=== PATIENT | female | born 1995 | race Caucasian/White ===

== ENCOUNTER 2024-08-23 18:18 | Inpatient (IN) | payer MEDICAID, SELFPAY ==
[2024-08-23 19:10] VITALS: BP 138/83; PULSE 84; RESP 14; TEMP 36.8; O2SAT 97
[2024-08-23 19:12] VITALS: BMI 37.9
--- NOTE | 2024-08-23 19:32 | PC.NURSE ---
Patient arrived on the unit at 1854 on a CV from [facility]. Patient's meter changes records clerk was completed with two nurses (skin WDI) along with vitals and height and weight (pt was also oriented to the unit). Denies SI/HI and requested to lay down after the skin check was completed.
--- NOTE | 2024-08-24 01:28 | PM.EVENT ---
Event Note Date of Service: 08/24/24 Event Note: Patient is a 29-year-old female admitted to adult psych, hospitalist consultation placed for medical clearance. The patient was sleeping and it was requested by nursing staff that we do not with the patient for nonurgent consultation. Upon review of the patient's chart she does not have any significant medical history. She did not have any medical concerns when seen by nursing staff upon arrival. Time Spent With Patient Time: Total time managing care of this patient today ____ minutes.
[2024-08-24] MEDS: Acetaminophen 325 MG TABLET 650 MG PO (03:09)
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
[2024-08-24 08:00] VITALS: BP 142/82; PULSE 82; RESP 16; TEMP 36.6; O2SAT 99
--- NOTE | 2024-08-24 08:20 | P.CONHOSP_ITS ---
History of Present Illness Data of Consult Service Date: 08/24/24 Primary Care Provider: Unknown Physician HPI Reason for consult: Admission H&P Pt is a 29-year-old female without known significant PMH who is admitted to M3 psychiatry unit for bizarre behaviors. Pt initially called the police department looking for an officer that she had been communicating with telepathically. Reported that she would often speak directly to God and was told in a dream by angellily to call the police today to find out who she had been communicating with. Medical consult for admission H&P. Pt reports had previously had constipation for a few days but then talked to God about it who then resolved the issue. Pt states that she is able to speak directly to God and often talks to him about medical issues which he is able to treat. Currently pt denies any acute medical complaints. No fever, chills, nausea, vomiting, abdominal pain. Denies chest pain/pressure, palpitations. No SOB or difficulty breathing. No headache or acute vision changes Denies changes to bowel or bladder habits. Vitals reviewed, stable and WNL. Labs and [facility] reviewed, grossly unremarkable. Review of Systems Review of Systems: Pt has no acute medical complaints at this time. [facility] Social History Household Members: Other Household Members Other:: Mom Housing: Other Housing Other:: [facility] Do you presently have visiting nurse or other home services: No Patient Tobacco Use Status: Former Tobacco user Tobacco use type: Cigarette Smoked in Last 30 Days: No Patient Interested in Nicotine Replacement: No Patient Given Instructions on How to Stop Smoking: No (states quit) Second Hand Smoke Exposure: No Currently Displaying Signs/Symptoms of Drug Intoxication Withdrawal: No Have you been hit, kicked, punched, or otherwise hurt by someone within the past year? If so, by whom?: No Do you feel safe in your current relationship?: No Current Relationship Is there a partner from a previous relationship who is making you feel unsafe now?: No Are you made to feel afraid or neglected: No Advance Directives: No Advance Directives Information Provided: No Do you have thoughts of harming others: None Do you have a plan to hurt others: No Plan Recently lost weight without trying: No How much weight loss: Not applicable Eating poorly because of decreased appetite: No Nutrition screen score: 0 Nutrition Risks: No Nutritional Risk Patient : No (labs drawn for this.) : No Meds Allergies Allergy/AdvReac Type Severity Reaction Status Date / Time Unable to Assess Allergy Verified 08/23/24 18:44 Active Medications: Current Medications Acetaminophen (Acetaminophen 325 Mg Tablet) 650 mg PO Q6H PRN PRN Reason: Headache/Pain, Scale 1-10 Last Admin: 08/24/24 03:09 Dose: 650 mg Al Hydroxide/Mg Hydroxide (Magnesium Hydrox/Alum Hydrox 30 Ml Oral.Susp) 30 ml PO Q6H PRN PRN Reason: Heartburn/Nausea Hydroxyzine HCl (Hydroxyzine Hcl 25 Mg Tablet) 25 mg PO Q6H PRN PRN Reason: mild anxiety Magnesium Hydroxide (Milk Of Magnesia 30 Ml Oral.Susp) 30 ml PO DAILY PRN PRN Reason: Constipation Nicotine Polacrilex (Nicotine Polacrilex 2 Mg Gum) 4 mg BUCCAL Q2H PRN PRN Reason: Nicotine Cravings Trazodone HCl (Trazodone Hcl 50 Mg Tablet) 50 mg PO BEDTIME MRX1 PRN PRN Reason: Insomnia Home Medications ?Medication ?Instructions ?Recorded ?Confirmed ?Last Taken ?Type No Known Home Meds 08/24/24 08/24/24 Unknown History Physical Exam Vital Signs and Narrative: Vital Signs: Last Vital Signs Temp 98.2 F 08/23/24 19:10 Pulse 84 08/23/24 19:10 Resp 14 08/23/24 19:10 BP 138/83 08/23/24 19:10 Pulse Ox 97 08/23/24 19:10 O2 Del Method Room Air 08/23/24 19:10 BMI result Body Mass Index 37.9 General: AOx3, no acute distress Resp: CTA bilaterally CVS: S1, S2, RRR GI: +BS, NT, no distention Skin: Warm, dry Neuro: Cranial nerves II-XII grossly intact bilaterally. Motor grossly intact bilaterally Extremities: No edema Psych: Appears acutely psychotic with delusions of speaking to got and angels, pressured speech Assessment and Plan (1) Medical clearance for psychiatric admission: Status: Acute Plan Pt is a 29-year-old female without known significant PMH who is admitted to psychiatry unit for bizarre behaviors. Pt initially called the police department looking for an officer that she had been communicating with telepathically. Reported that she would often speak directly to God and was told in a dream by verito to call the police today to find out who she had been communicating with. Medical consult for admission H&P. Mood disorder Plan as per Psychiatry Pt otherwise has no known PMH and reports no acute medical complaints. Thank you for allowing us to participate in the care of this pt. Will sign off for now. Please re-consult if any acute issue or need arises.
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
[2024-08-24 20:15] VITALS: BP 137/74; PULSE 83; RESP 16; TEMP 36.5; O2SAT 99
[2024-08-24] MEDS: Lithium Carbonate ER 450 MG TABLET.ER PO (21:36)
[2024-08-24] MEDS: risperiDONE 1 MG TABLET PO (21:36)
[2024-08-25 08:00] VITALS: BP 136/87; PULSE 103; RESP 18; TEMP 36.9; O2SAT 98
[2024-08-25 08:45] LABS: Estimated Average Glucose 100 mg/dL; Hemoglobin A1C 114.0227 umol/L; Hemoglobin A1c % 5.1 % (<6.0); Total Hemoglobin (HGBA1C) 3579.4941 umol/L
[2024-08-25 08:56] LABS: Cholesterol 129 mg/dL (<200); HDL Cholesterol 45 mg/dL (>40); LDL Cholesterol Calculated 66 mg/dL (<100); Triglycerides 94 mg/dL (<150)
[2024-08-25 09:12] LABS: Free T4 (Free Thyroxine) 1.12 ng/dL (0.71-1.85); Thyroid Stimulating Hormone 0.95 uIU/mL (0.32-4.0)
[2024-08-25 09:23] LABS: Folate 6.6 ng/mL (> or = 4.0); Vitamin B12 371 pg/mL (200-900)
--- NOTE | 2024-08-25 16:10 | P.PNPSI_ITS ---
Subjective Subjective Date of Service: 08/25/24 Reason For Visit: Mental Health Crisis Interim History: took meds last night, but refused meds today. labile, upset at not being believed. states she will take risperidone 1 mg. MD agrees to let her take that and to DC the lithium and morning risperidone. per staff, upset with MD not believing her. this is my truth. took meds last NOC. denies Sx. slept 6 hours. 3-day up . Mental Status Exam Mental Status Exam Narrative: adequately dressed and groomed. cooperative. no PMA/PMR. speech incr rate, amount. decr latency. nml loudness. thoughts more topical, less tangential. affect labile. mood not assessed. no SI/SIBI/HI/AVH expressed. Diagnostics Vital Signs (24Hr): Vital Signs - 24 hr 08/24/24 20:15 08/25/24 08:00 Temperature 97.7 F 98.5 F Pulse Rate 83 103 H Respiratory Rate 16 18 Blood Pressure 137/74 136/87 Pulse Oximetry 99 98 Oxygen Delivery Method Room Air Room Air BMI result Body Mass Index 37.9 Labs Labs: Laboratory Results - last 48 hr 08/25/24 08:21 Estimat Average Glucose 100 Hemoglobin A1c % 5.1 Triglycerides 94 Cholesterol 129 LDL Cholesterol, Calc 66 HDL Cholesterol 45 Vitamin B12 371 Folate 6.6 TSH 0.95 Free T4 1.12 Medications Medications Current Medications Acetaminophen (Acetaminophen 325 Mg Tablet) 650 mg PO Q6H PRN PRN Reason: Headache/Pain, Scale 1-10 Last Admin: 08/24/24 03:09 Dose: 650 mg Al Hydroxide/Mg Hydroxide (Magnesium Hydrox/Alum Hydrox 30 Ml Oral.Susp) 30 ml PO Q6H PRN PRN Reason: Heartburn/Nausea Benzocaine (Throat Lozenge, Medicated Lozenge) 1 lozenge MUCOUS MEM Q1H PRN PRN Reason: Sore Throat Hydroxyzine HCl (Hydroxyzine Hcl 25 Mg Tablet) 25 mg PO Q6H PRN PRN Reason: mild anxiety Magnesium Hydroxide (Milk Of Magnesia 30 Ml Oral.Susp) 30 ml PO DAILY PRN PRN Reason: Constipation Nicotine Polacrilex (Nicotine Polacrilex 2 Mg Gum) 4 mg BUCCAL Q2H PRN PRN Reason: Nicotine Cravings Risperidone (Risperidone 1 Mg Tablet) 1 mg PO BEDTIME ESTELITA Trazodone HCl (Trazodone Hcl 50 Mg Tablet) 50 mg PO BEDTIME MRX1 PRN PRN Reason: Insomnia Allergies Allergies Allergy/AdvReac Type Severity Reaction Status Date / Time Unable to Assess Allergy Verified 08/23/24 18:44 Assessment & Plan Assessment & Plan (1) Medical clearance for psychiatric admission: Status: Acute Code(s): Z00.8 - Encounter for other general examination Assessment and Plan: Pt is a 29-year-old female without known significant PMH who is admitted to psychiatry unit for bizarre behaviors. Pt initially called the police depar tment looking for an officer that she had been communicating with telepathically. Reported that she would often speak directly to God and was told in a dream by verito to call the police today to find out who she had been communicating with. Medical consult for admission H&P. Mood disorder Plan as per Psychiatry Pt otherwise has no known PMH and reports no acute medical complaints. Thank you for allowing us to participate in the care of this pt. Will sign off for now. Please re-consult if any acute issue or need arises. (2) Psychosis: Status: Acute Code(s): F29 - Unspecified psychosis not due to a substance or known physiological condition Plan psychotic disorder versus bipolar diathesis. exhibiting hyperverbality, lability, restoration preoccupation, grandiosity, sleep-wake cycle disturbance. 08/24: offer lithium 450 BID and risperidone 1 BID. pt states she will refuse medications, unfortunately. 08/25: more organized today, but still labile. took meds last night. bargains to take risperidone 1 mg QHS only, agrees to this schedule. lithium and morning risperidone doses DCed. 3-day up weds. Reason for continued inpatient stay Substantial Risk for: inability to function Time Spent With Patient Time: Total time managing care of this patient today ____ minutes.
[2024-08-25 20:00] VITALS: BP 131/96; PULSE 115; RESP 16; TEMP 36.4; O2SAT 98
[2024-08-25] MEDS: risperiDONE 1 MG TABLET PO (21:18)
[2024-08-25] MEDS: Acetaminophen 325 MG TABLET 650 MG PO (22:47)
[2024-08-26] MEDS: Acetaminophen 325 MG TABLET 650 MG PO (09:05)
[2024-08-26] MEDS: Throat Lozenge, Medicated LOZENGE 1 LOZENGE MUCOUS MEM (09:34)
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
[2024-08-26 19:50] VITALS: BP 162/89; PULSE 108; TEMP 36.8; O2SAT 100
[2024-08-26] MEDS: risperiDONE 1 MG TABLET PO (20:04)
[2024-08-27 07:49] VITALS: BP 139/91; PULSE 97; RESP 16; TEMP 36.8; O2SAT 100
--- NOTE | 2024-08-27 11:32 | PC.NURSE ---
Patient easily engaged. Reports feeling ready for discharge. Anxious to leave. Plans to return to mothers home, follow up with insurance processor to obtain [employer]. Denies SI/HI plan or intent. Discharge paperwork reviewed with patient reports understanding. Walk in clinic information provided reports understanding. Medication obtained from pharmacy given to patient with instruction. Reports understanding. Crisis numbers provided to patient. All belongings taken with patient.
== END 2024-08-27 11:02 | disposition home or self-care (01) | DRG 751 ==
PROVIDERS: Admitting Provider Psychiatry & Neurology Psychiatry; Visit Provider Psychiatry & Neurology Psychiatry
DX: F29 Unspecified psychosis not due to a substance or known physiological condition (principal); Z87.891 Personal history of nicotine dependence; Z91.52 Personal history of nonsuicidal self-harm; Z79.899 Other long term (current) drug therapy
CPT/HCPCS: 36415; 80061; 82607; 82746; 83036; 84439; 84443

== ENCOUNTER → 2024-08-23 18:18 | Outpatient (BNV) | payer OTHER, SELFPAY | PROVIDERS: Admitting Provider Psychiatry & Neurology Psychiatry; Visit Provider Psychiatry & Neurology Psychiatry | DX: F29 Unspecified psychosis not due to a substance or known physiological condition (principal) | CPT/HCPCS: 99231; 99232; 99233 ==

== ENCOUNTER → 2024-08-23 18:18 | Outpatient (BNV) | payer SELFPAY | PROVIDERS: Admitting Provider Psychiatry & Neurology Psychiatry; Visit Provider Physician Assistant | DX: Z00.8 Encounter for other general examination (principal) | CPT/HCPCS: 99222; 99499 ==

== ENCOUNTER 2024-10-16 21:24 | Inpatient (IN) | payer OTHER, SELFPAY ==
[2024-10-16 22:00] VITALS: BP 155/96; PULSE 106; TEMP 36.6; O2SAT 94
[2024-10-16 22:01] VITALS: BMI 36.2
[2024-10-17 07:00] VITALS: BMI 36.0
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
[2024-10-17 08:00] VITALS: BP 135/88; PULSE 91; RESP 16; O2SAT 99
--- NOTE | 2024-10-17 08:35 | HO.PM.IMCN ---
History of Present Illness Data of Consult Service Date: 10/17/24 Primary Care Provider: Unknown Physician HPI Reason for consult: Medical management 29-year-old female with a past medical history of anxiety and depression presented to [facility] Emergency Department via EMS after she called the [place] police requested to be transported for mental health evaluation. She [place] [facility] [place] she was discharged several days later on medications, she decided that she did not want to take the medications. She continued to experience delusional behavior preoccupation with God and writing her thoughts and subsequently called EMS. Her CBC and BMP were within normal limits. TSH within normal limits. On exam she has no medical concerns. She denies any shortness of breath, chest pain, dizziness lightheadedness or any other concerning symptoms. Review of Systems Review of Systems: Denies any shortness of breath, chest pain, dizziness, lightheadedness, abdominal pain or discomfort, nausea vomiting or diarrhea PMFSH Medical History (Updated 10/17/24 @ 11:51 by Felicia Sotelo DNP) Medical clearance for psychiatric admission Social History Household Members: Family Household Members Other:: Mom Housing: Condominium Housing Other:: [facility] Do you presently have visiting nurse or other home services: No Patient Tobacco Use Status: Former Tobacco user Tobacco use type: Cigarette Smoked in Last 30 Days: No Second Hand Smoke Exposure: No Have you been hit, kicked, punched, or otherwise hurt by someone within the past year? If so, by whom?: No Do you feel safe in your current relationship?: No Current Relationship Is there a partner from a previous relationship who is making you feel unsafe now?: No Are you made to feel afraid or neglected: No Advance Directives: No Advance Directives Information Provided: Yes Do you have a plan to hurt others: No Plan Recently lost weight without trying: No Nutrition Risks: No Nutritional Risk Patient : No : No Poor oral hygiene: No service: No Sexual orientation: Unable to collect Meds Allergies Allergy/AdvReac Type Severity Reaction Status Date / Time spring soap Allergy Intermediate Rash Uncoded 10/16/24 21:44 Active Medications: Current Medications Acetaminophen (Acetaminophen 325 Mg Tablet) 650 mg PO Q6H PRN PRN Reason: Headache/Pain, Scale 1-10 Al Hydroxide/Mg Hydroxide (Magnesium Hydrox/Alum Hydrox 30 Ml Oral.Susp) 30 ml PO Q6H PRN PRN Reason: Heartburn/Nausea Hydroxyzine HCl (Hydroxyzine Hcl 25 Mg Tablet) 25 mg PO Q6H PRN PRN Reason: mild anxiety Magnesium Hydroxide (Milk Of Magnesia 30 Ml Oral.Susp) 30 ml PO DAILY PRN PRN Reason: Constipation Nicotine Polacrilex (Nicotine Polacrilex 2 Mg Gum) 4 mg BUCCAL Q2H PRN PRN Reason: Nicotine Cravings Trazodone HCl (Trazodone Hcl 50 Mg Tablet) 50 mg PO BEDTIME MRX1 PRN PRN Reason: Insomnia Home Medications ?Medication ?Instructions ?Recorded ?Confirmed ?Last Taken ?Type No Known Home Meds 10/16/24 10/16/24 Unknown History Physical Exam Vital Signs and Narrative: Vital Signs: Last Vital Signs Temp 97.9 F 10/16/24 22:00 Pulse 106 H 10/16/24 22:00 BP 155/96 H 10/16/24 22:00 Pulse Ox 94 10/16/24 22:00 O2 Del Method Room Air 10/16/24 22:00 BMI result Body Mass Index 36.2 Alert and oriented X3, able to give good history. Neuro: CN II-X11 intact, no deficits, visual acuity intact EYES: PERRLA, EOM intact ENT: Hearing intact, lips moist Cardiac: S1 S2 RRR, No ectopy Pulmonary: lungs clear to auscultation, No increased WOB. Abdominal: BS active in all 4 quadrants, no guarding or tenderness MSK: Strength 5/5 upper and lower extremities. Moves all extremities : Deferred Extremities: No edema in lower extremities Psych: Mood stable, Quiet and cooperative. Skin: Warm and dry, Intact Assessment and Plan (1) Schizoaffective disorder: Status: Acute Plan Anxiety/depression/Schizoaffective disorder/PTSD Treatment plan per psychiatric team. Thank you for allowing me to participate in the care of this patient. Signing off at this time. Please reconsult of any acute concerns or issues arise
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
[2024-10-17 19:54] VITALS: BP 138/91; PULSE 98; TEMP 36.7; O2SAT 98
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
[2024-10-18 20:00] VITALS: BP 125/80; PULSE 113; RESP 15; TEMP 35.8; O2SAT 99
[2024-10-19 07:55] VITALS: BP 114/76; PULSE 93; RESP 18; TEMP 36.2; O2SAT 100
[2024-10-19 20:00] VITALS: BP 139/88; PULSE 113; RESP 15; TEMP 36.1; O2SAT 99
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
[2024-10-20 08:00] VITALS: BP 133/84; PULSE 86; RESP 18; TEMP 36.1; O2SAT 100
[2024-10-20 20:00] VITALS: BP 130/84; PULSE 93; RESP 15; TEMP 36.3; O2SAT 99
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
[2024-10-21 08:00] VITALS: BP 133/79; PULSE 103; RESP 18; TEMP 35.8; O2SAT 96
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
--- NOTE | 2024-11-02 15:04 | PM.PSYDC ---
DS: Providers Provider Date of Service: 10/21/24 Date of admission: 10/16/24 21:24 Date of discharge: 10/21/24 Primary care physician: Ilya Physician Admitting clinician: Annie Godwin Attending physician on admission: Kris Todd Consults: 10/16/24 21:44 Consult to Hospitalist Routine Comment: Consulting Provider: [facility] Hospitalists Reason For Exam: Transfer pt Attending physician on discharge: Kris Todd Discharging clinician: Maru Harp DS: Diagnosis Discharge Diagnosis (1) Schizoaffective disorder: Status: Acute DS: Medications Discharge Medications Home Medications: Home Medications ?Medication ?Instructions ?Recorded ?Confirmed No Known Home Meds 10/16/24 10/16/24 Mental Status Exam Mental Status Exam Patient Appearance: Appropriate Patient Orientation: Person, Place, Time and Situation Level of Consciousness: Alert Patient Behavior: Talkative Mood Description: Appropriate and Apprehensive Affect Description: Appropriate and Apprehensive Patient Cognition Impaired: No Ability to Follow Directions: Good Speech Pattern: Spontaneous Speech Memory Description: Intact Hallucinations: None (denies) Delusions: Not Present Thought Process: Intact Thought Content: positive for Intact and positive for Suicidal Ideation (denies) Judgement: Good DS: Summary Hospital Course Hospital Course: Admission to adult psychiatry for exacerbation of schizoaffective disorder, transfer from [facility] after calling police, telling them she had a nightmare of being stabbed and that God was talking with her. Pt was recently admitted to [facility] and Risperdal was initiated. Upon discharge she stopped Risperdal and has decided she will not accept medications. She also has stopped cannabis. Pt participated in the milieu, accepted resources to contact [facility] and will return to her home. Her mother agrees with her decision to not utilize medications and will offer her support upon discharge. Status at Discharge Functional status at discharge: independent ambulation Overall status at discharge: patient is progressing back to baseline Time Spent with Patient Time attestation: Total time managing care of this patient today ____ minutes. Time spent: Less than 30 minutes Discharge Plan Discharge Anticipated Discharge Date/Time: 10/21/24 13:03 Patient Disposition: Home, Self-Care Discharge Diagnosis: Schizoaffective Disorder Referrals: Physician,Ilya J [Primary Care Provider, Medical] - 1 Week Discharge Medications: No Action No Known Home Meds Discharge Orders: Discharge Order (Routine); Ordered 10/21/24 Ordered By: Maru Harp Diet: Advance to usual diet Activity on Discharge: As tolerated Stand Alone Forms: Patient Portal Discharge page, Community Support Print Language: Palestinian Care Plan Goals: Mood and Behavioral Stabilization Health Concerns: Mood and Behavioral Stabilization Plan of Treatment: Consider calling [facility] for 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
== END 2024-10-21 13:20 | disposition home or self-care (01) | DRG 750 ==
PROVIDERS: Admitting Provider Psychiatry & Neurology Psychiatry; Visit Provider Psychiatry & Neurology Psychiatry
DX: F25.9 Schizoaffective disorder, unspecified (principal); Z87.891 Personal history of nicotine dependence

== ENCOUNTER → 2024-10-16 21:24 | Outpatient (BNV) | payer OTHER, SELFPAY | PROVIDERS: Admitting Provider Psychiatry & Neurology Psychiatry; Visit Provider Nurse Practitioner Family | DX: F25.9 Schizoaffective disorder, unspecified (principal) | CPT/HCPCS: 99221 ==

== ENCOUNTER → 2024-10-16 21:24 | Outpatient (BNV) | payer OTHER, SELFPAY | PROVIDERS: Admitting Provider Psychiatry & Neurology Psychiatry; Visit Provider Nurse Practitioner Family | DX: F25.9 Schizoaffective disorder, unspecified (principal) | CPT/HCPCS: 90792; 99231; 99232 ==